=== PATIENT | male | born 1995 | race American Indian/Alaskan Native ===

== ENCOUNTER 2019-06-05 12:17 | Emergency (ER) | payer SELFPAY ==
[2019-06-05] MEDS ORDERED: KETOROLAC 60 MG/2 ML INJ IM ONE (13:57)
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
== END 2019-06-05 14:19 | disposition home or self-care (01) ==
LOC: ED 12:17
DX: M54.2 Cervicalgia (principal); M25.511 Pain in right shoulder; M25.512 Pain in left shoulder; M54.89 Other dorsalgia
CPT/HCPCS: 96372; 99282; J1885

== ENCOUNTER 2020-09-12 13:18 | Emergency (ER) | payer SELFPAY ==
[2020-09-12 13:28] VITALS: BP 151/94
== END 2020-09-12 13:30 | disposition left against medical advice (07) ==
LOC: ED 13:18
DX: M54.9 Dorsalgia, unspecified (principal); Z53.21 Procedure and treatment not carried out due to patient leaving prior to being seen by health care provider

== ENCOUNTER 2020-10-08 14:25 | Emergency (ER) | payer OTHER ==
[2020-10-08 14:49] VITALS: BP 139/89
--- NOTE | 2020-10-08 16:16 | Emergency Department Report ---
Chief Complaint: Back Pain/Injury Stated Complaint: BACK PAIN Time Seen by Provider: 10/08/20 15:33 - HPI History of Present Illness: Patient is a 25-year-old male presents emergency room with points of chronic back pain since 2019. He has been evaluated in the emergency department previously for this complaint. He has not followed up with a primary care doctor or an orthopedic doctor. He reports that he has an upcoming appointment with a primary care doctor. He denies any acute fall or injury. He denies any fever, nausea, vomiting, diarrhea, numbness, weakness, bowel or bladder incontinence, saddle numbness, urinary retention, urinary symptoms. He is ambul atory without difficulty. 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 No past medical history. No allergies to medications. Patient states that he wants muscle relaxers for his chronic back pain. Vitals are stable On exam: Non toxic appearing, no acute distress atraumatic, normocephalic normal appearance of the eyes, PERRL, EOMI, no periorbital edema or ecchymosis moist mucus membranes regular heart rate and rhythm, no gallops, no rubs, no murmurs breath sounds are clear bilaterally, no w/r/r, no stridor, no respiratory distress, no accessory muscle use No midline or paraspinal C-spine, T-spine, L-spine tenderness palpation, no step-offs, no deformities A&O x4, no focal neuro deficit, normal gait, 5 out of 5 muscle strength in the bilateral upper extremities and lower extremities, sensation intact throughout skin is warm, dry, intact Patient is presenting for chronic back pain He has not seen a primary care doctor or orthopedic for this complaint He has had no acute trauma He has no red flag warning signs of back pain, no trauma, no unexplained weight loss, no neuro deficits, age is not greater than 50, no fever, no IV drug use, no steroid use, no history of cancer Advised patient that we do not treat chronic pain in the emergency department Patient be referred to primary care physician and orthopedic Discuss strict return precautions with patient Medical screening examination performed and there is no threat to life or limb at this time - Exam Vital Signs: Vital Signs 10/08/20 14:43 Temperature 98.2 F Pulse Rate 66 Respiratory 16 Rate Blood Pressure 139/89 O2 Sat by Pulse 96 Oximetry MSE screening note: Focused history and physical exam performed. ED Disposition for MSE Clinical Impression: Chronic back pain Qualifiers: Back pain location: low back pain Back pain laterality: bilateral Sciatica presence: without sciatica Qualified Code(s): M54.5 - Low back pain Disposition: MED SCREENING EXAM-LEFT Is pt being admited?: No Does the pt Need Aspirin: No Condition: Stable Instructions: Chronic Back Pain, [id number] Additional Instructions: may alternate tylenol or ibuprofen as needed for discomfort. may use ice pack, heating pad, rest, epsom salt bath. follow up with a primary care doctor. follow up with an orthopedic/spine doctor. return to the emergency room for any new or worsening symptoms. Referrals: MARTHA CULVER MD [Staff Physician] - 3-5 Days [facility] [Provider Group] - 3-5 Days [facility] [Provider Group] - 3-5 Days NIYA JONAS II, MD [Staff Physician] - 3-5 Days Time of Disposition: 16:16 Print Language: GUINEAN
== END 2020-10-08 16:29 | disposition left against medical advice (07) ==
LOC: ED 14:25
DX: M54.6 Pain in thoracic spine (principal); G89.29 Other chronic pain; Z53.21 Procedure and treatment not carried out due to patient leaving prior to being seen by health care provider